=== PATIENT | male | born 1985 | race Caucasian/White ===

== ENCOUNTER 2021-08-02 14:47 | Emergency (ER) | payer BC, SELFPAY ==
--- NOTE | ~2021-08-02 | CT_ITS ---
EXAMINATION: CT facial bones w con DATE: 08/02/2021 17:10 INDICATION: Cyst at the left cheek with edema and fascial erythema TECHNIQUE: Computed tomography (CT) of the facial bones and maxillofacial region was performed with 7 5 mL Omnipaque-350 intravenous contrast. Coronal reconstructions were obtained. Automated exposure co ntrol and iterative reconstruction technique were employed. The dose-length product was 491.39 mGy-cm . COMPARISON: None. FINDINGS: Soft tissue swelling with skin thickening and subcutaneous edema at the left side of the face consist ent with cellulitis. This appears centered around a 1.5 cm rim enhancing lesion in the subcutaneous f at consistent with a small abscess. There is an additional 2.1 x 1.3 cm cystic lesion without appreci able peripherally enhancing wall or surrounding inflammatory stranding more caudally overlying the po sterior body of the left mandible. Dental disease including large dental caries with associated peria pical erosions involving molars at the left and right mandible and right maxilla. No maxillofacial fr actures. The soft tissue swelling the left malar region extends to the preseptal soft tissues at the inferior left orbit. The orbits are otherwise normal with intact appearing globes and no post septal inflammatory stranding. Visualized portion of the brain is unremarkable. Mild asymmetric enlargement of a few likely reactive left cervical lymph nodes which remain within normal limits. No pathological ly enlarged lymphadenopathy. The bilateral parotid and submandibular glands are normal. Middle ear ca vities, paranasal sinuses and visualized portions of the mastoid air cells are clear. IMPRESSION: 1. Left facial cellulitis surrounding a 1.5 cm rim-enhancing lesion in the subcutaneous fat suspiciou s for abscess. 2. A second 2.1 x 1.3 cm cyst cystic lesion more caudally at the left face without peripheral enhanci ng wall or surrounding inflammatory stranding likely representing a sebaceous/epidermoid cyst. 3. Extensive dental disease with large erosions with associated periapical erosions involving the rig ht maxillary and bilateral mandibular molars. Consider dental referral. Reviewed, dictated and finalized at location [facility] IMPRESSION: 1. Left facial cellulitis surrounding a 1.5 cm rim-enhancing lesion in the subc utaneous fat suspicious for abscess. 2. A second 2.1 x 1.3 cm cyst cystic lesion more caudally at the left face with out peripheral enhancing wall or surrounding inflammatory stranding likely repr esenting a sebaceous/epidermoid cyst. 3. Extensive dental disease with large erosions with associated periapical eros ions involving the right maxillary and bilateral mandibular molars. Consider de ntal referral.
[2021-08-02 14:49] VITALS: BP 154/92; PULSE 93; RESP 16; TEMP 36.8; O2SAT 100
--- NOTE | 2021-08-02 15:37 | ED.SKABFB ---
HPI - Skin/Abscess/Foreign Bdy General Chief complaint: Skin/Abscess/Foreign Body <Savana Anne PA-C - Last Filed: 08/02/21 19:15> Stated complaint: facial swelling <CADEN Davidson Last Filed: 08/02/21 19:15> Time Seen by Provider: 08/02/21 14:58 <CADEN Davidson Last Filed: 08/02/21 19:15> Source: patient <CADEN Davidson Last Filed: 08/02/21 19:15> Mode of arrival: ambulatory <CADEN Davidson Last Filed: 08/02/21 19:15> Limitations: no limitations <CADEN Davidson Last Filed: 08/02/21 19:15> History of Present Illness HPI narrative: This is a 36 year old male that presents to the ER for redness and swelling to the left side of the face. Ongoing for the last 2 days. Reports it started as a small pimple. He popped it on Saturday and when he woke up yesterday the swelling had acutely worsened. Today the swelling continued to worsen which prompted him to be seen. He attempted to drain it again today with a safety pin. Denies fever. <Savana Anne PA-C - Last Filed: 08/02/21 19:15> Related Data Allergies/Adverse reactions: Allergies Allergy/AdvReac Type Severity Reaction Status Date / Time No Known Allergies Allergy Verified 08/02/21 15:07 <CADEN Davidson Last Filed: 08/02/21 19:15> Review of Systems Review of Systems: CONSTITUTIONAL: Denies fever EYES: Denies visual changes, redness, or discharge. RESPIRATORY: Denies dyspnea. SKIN: Reports erythema and edema <CADEN Davidson Last Filed: 08/02/21 19:15> All systems reviewed & are unremarkable except as noted in HPI and below <CADEN Davidson Last Filed: 08/02/21 19:15> [facility] Past Medical History Medical History: Medical History (Updated 08/02/21 @ 18:42 by Savana Anne PA-C) No active medical problems <Savana Anne PA-C - Last Filed: 08/02/21 19:15> Social History Social History: Social History (Updated 08/02/21 @ 15:49 by Savana Anne PA-C) Smoking status: Current every day smoker <Savaan Anne PA-C - Last Filed: 08/02/21 19:15> Exam Narrative: GENERAL: Well-appearing, well-nourished, and in no acute distress. HEAD: Normocephalic, atraumatic. EYES: PERRLA and EOMI. ENT: Nares clear, no rhinorrhea or epistaxis. Mucous membranes moist. Oropharynx without tonsillar hypertrophy exudate or other lesions. Bilateral TMs pearly rodriguez non-bulging. Moderate left sided erythema and edema over the cheek NECK: Supple. No adenopathy or masses. CHEST: Clear to auscultation. No respiratory distress. No wheezes rales or rhonchi HEART: Regular rate and rhythm. No murmur heard. Normal peripheral pulses. EXTREMITIES: Normal range of motion. No edema. SKIN: Warm, dry, no rash. NEURO: No focal deficits. Alert and oriented x3. PSYCH: Normal mood and affect <Savana Anne PA-C - Last Filed: 08/02/21 19:15> Course COPIER REPAIR TECHNICIAN/PA Physician Supervision For this patient encounter, I reviewed the COPIER REPAIR TECHNICIAN or PA documentation, treatment plan, and medical decision making <Elroy Love MD - Last Filed: 08/02/21 20:41> Consultations Consultation #1: Spoke with Dr. Echevarria about patient and workup. Patient will be placed on Augmentin and is to follow up in clinic. <Savana Anne PA-C - Last Filed: 08/02/21 19:15> Date: 08/02/21 <Savana Anne PA-C - Last Filed: 08/02/21 19:15> Time: 18:30 <Savana Anne PA-C - Last Filed: 08/02/21 19:15> Vital Signs Vital signs: Vital Signs Temperature 98.2 F 08/02/21 14:49 Pulse Rate 93 08/02/21 14:49 Respiratory Rate 16 08/02/21 14:49 Blood Pressure 154/92 H 08/02/21 14:49 Pulse Oximetry 100 08/02/21 14:49 Temperature 98.2 F 08/02/21 14:49 Pulse Rate 90 08/02/21 20:09 Respiratory Rate 18 08/02/21 20:09 Blood Pressure 136/88 08/02/21 20:09 Pulse Oximetry 99 08/02/21 20:09 <Savana Anne PA-C - Last Filed: 08/02/21 19:15>
[2021-08-02 15:54] LABS: Basophils Percent Auto 0.2 % (0.2-1.2); Eosinophils Absolute Auto 0.1 K/mm3 (0-0.3); Eosinophils Percent Auto 0.9 % (0-4.4); Hematocrit 46.9 % (42.0-52.0); Hemoglobin 15.8 g/dL (14.0-18.0); Immature Granulocyte Absolute 0.09 K/mm3 (0.00-0.031); Immature Granulocyte Percent A 0.5 % (0-0.5); Lymphocytes Percent Auto 12.2 % (18.3-44.2); Mean Corpuscular HGB Conc 33.7 g/dl (32-36); Mean Corpuscular Hemoglobin 30.7 pg (26-34); Mean Corpuscular Volume 91.1 fl (80-100); Mean Platelet Volume 9.2 fl (7.4-10.4); Monocytes Absolute Auto 1.2 K/mm3 (0.1-0.6); Monocytes Percent Auto 7.1 % (2.6-8.5); Neutrophils Percent Auto 79.1 % (45.5-73.1); Platelet Count Result 286 k/mm3 (150-375); Red Blood Count 5.15 M/mm3 (4.6-6.20); Red Cell Distribution Width 12.8 % (11.5-14.5); White Blood Count 16.5 K/mm3 (4.5-10.0)
[2021-08-02 16:32] LABS: Anion Gap 5 mmol/L (8-16); Blood Urea Nitrogen 13 mg/dL (9-20); Calcium 9.3 mg/dL (8.4-10.2); Carbon Dioxide 26 mmol/L (22-30); Chloride 107 mmol/L (98-107); Estimated CRCL calculation 127 ml/min; Estimated Glomerular Filt Rate > 60; Glucose 98 mg/dL (65-110); Sodium 138 mmol/L (137-145)
[2021-08-02 16:43] LABS: CRP 2.1 mg/dL (<1.0)
[2021-08-02 17:30] LABS: Erythrocyte Sedimentation Rate 27 mm/hr (0-20)
[2021-08-02 20:09] VITALS: BP 136/88; PULSE 90; RESP 18; O2SAT 99
== END 2021-08-02 20:10 | disposition home or self-care (01) ==
PROVIDERS: Physician Assistant; Emergency Provider Emergency Medicine
DX: L03.211 Cellulitis of face (principal); F17.200 Nicotine dependence, unspecified, uncomplicated
CPT/HCPCS: 10060; 36415; 70487; 80048; 85025; 85652; 86140; 87070; 87205; 96365; 96366; 99284; J3370; Q9967